=== PATIENT | female | born 1995 ===

== ENCOUNTER 2018-10-08 06:08 | Emergency (ER) | payer OTHER ==
[2018-10-08 06:26] VITALS: BP 128/79
[2018-10-08] MEDS ORDERED: NACL 0.9% 1000 ML 1,000 ML IV ONE (06:26)
[2018-10-08 06:52] LABS: Basophils # (Auto) 0.1 K/mm3 (0.0-0.1); Basophils % (Auto) 1.1 % (0.0-1.8); Eosinophils # (Auto) 0.2 K/mm3 (0.0-0.4); Eosinophils % (Auto) 2.6 % (0.0-4.3); Hematocrit 36.4 % (30.3-42.9); Hemoglobin 12.2 gm/dl (10.1-14.3); Lymphocytes # (Auto) 2.7 K/mm3 (1.2-5.4); Lymphocytes % (Auto) 38.5 % (13.4-35.0); Mean Corpuscular HGB Conc 33 % (30-34); Mean Corpuscular Volume 86 fl (79-97); Monocytes # (Auto) 0.4 K/mm3 (0.0-0.8); Monocytes % (Auto) 5.8 % (0.0-7.3); Platelet Count 361 K/mm3 (140-440); Red Blood Count 4.25 M/mm3 (3.65-5.03); Red Cell Distribution Width 12.7 % (13.2-15.2)
[2018-10-08 07:22] LABS: Alanine Aminotransferase 17 units/L (7-56); Albumin 4.4 g/dL (3.9-5); BUN/Creatinine Ratio 15; Blood Urea Nitrogen 9 mg/dL (7-17); Calcium 8.9 mg/dL (8.4-10.2); Hemolysis Index 5
[2018-10-08 08:13] LABS: Bacteria,Urine 1+ /HPF (Negative); Bilirubin,Urine NEG (Negative); Blood,Urine NEG (Negative); Color,Urine Yellow (Yellow); Mucus,Urine FEW /HPF; Protein,Urine <15 mg/dL mg/dL (Negative); Urobilinogen,Urine < 2.0 mg/dL (<2.0)
--- NOTE | 2018-10-08 08:47 | Emergency Department Report ---
ED Abdominal Pain HPI - General Chief Complaint: Abdominal Pain Stated Complaint: ABD BACK BACK PAIN NV DISSINESS Time Seen by Provider: 10/08/18 08:25 Source: patient Mode of arrival: Ambulatory Limitations: No Limitations - History of Present Illness Initial Comments: Ana is a very pleasant 23 yo female who has had RUQ pain recurrent for the past 6 months. Pain has increased in severity during that time. Sharp pain moderately severe associated with vomiting. Pain radiates to center of back. No pain currently. Diagnosed with back strain from previous physician. Prescribed muscle relaxants and ibuprofen. Another physician recommended weight loss. -: Gradual, month(s) (6) Location: RUQ Radiation: back Severity scale (0 -10): 6 Quality: sharp Consistency: now resolved Improves With: nothing Associated Symptoms: nausea, vomiting - Related Data Allergies Allergy/AdvReac Type Severity Reaction Status Date / Time No Known Allergies Allergy Unverified 10/08/18 06:26 ED Review of Systems ROS: Stated complaint: ABD BACK BACK PAIN NV DISSINESS Other details as noted in HPI Comment: All other systems reviewed and negative Constitutional: denies: fever, malaise ED Past Medical Hx - Past Medical History Previous Medical History?: No - Surgical History Past Surgical History?: No - Social History Smoking Status: Never Smoker Substance Use Type: Alcohol ED Physical Exam - General Limitations: No Limitations General appearance: alert, in no apparent distress - Head Head exam: Present: atraumatic, normocephalic - Eye Eye exam: Present: normal appearance - ENT ENT exam: Present: mucous membranes moist - Neck Neck exam: Present: normal inspection, full ROM - Respiratory Respiratory exam: Present: normal lung sounds bilaterally. Absent: respiratory distress, wheezes, rales, rhonchi - Cardiovascular Cardiovascular Exam: Present: regular rate, normal rhythm, normal heart sounds. Absent: systolic murmur, diastolic murmur, rubs, gallop - GI/Abdominal GI/Abdominal exam: Present: soft, normal bowel sounds. Absent: distended, tenderness, guarding, rebound - Extremities Exam Extremities exam: Present: normal inspection - Back Exam Back exam: Present: normal inspection. Absent: full ROM, tenderness, CVA tenderness (R), CVA tenderness (L) - Neurological Exam Neurological exam: Present: alert, oriented X3 - Psychiatric Psychiatric exam: Present: normal affect, normal mood - Skin Skin exam: Present: warm, dry, intact, normal color. Absent: rash ED Course Vital Signs 10/08/18 06:14 Temperature 98.2 F Pulse Rate 94 H Respiratory 18 Rate Blood Pressure 128/79 O2 Sat by Pulse 100 Oximetry ED Medical Decision Making - Lab Data Result diagrams: 10/08/18 06:31 10/08/18 06:31 Laboratory Results - last 24 hr 10/08/18 10/08/18 10/08/18 06:31 06:31 06:31 WBC 7.0 RBC 4.25 Hgb 12.2 Hct 36.4 MCV 86 MCH 29 MCHC 33 RDW 12.7 L Plt Count 361 Lymph % (Auto) 38.5 H [place] % (Auto) 5.8 Eos % (Auto) 2.6 Baso % (Auto) 1.1 Lymph # 2.7 [place] # 0.4 Eos # 0.2 Baso # 0.1 Seg Neutrophils % 52.0 Seg Neutrophils # 3.6 Sodium 140 Potassium 4.4 Chloride 104.6 Carbon Dioxide 24 Anion Gap 16 BUN 9 Creatinine 0.6 L Estimated GFR > 60 BUN/Creatinine Ratio 15 Glucose 118 H Calcium 8.9 Total Bilirubin 0.20 AST 21 ALT 17 Alkaline Phosphatase 81 Total Protein 7.7 Albumin 4.4 Albumin/Globulin Ratio 1.3 HCG, Qual Negative Urine Color Urine Turbidity Urine pH Ur Specific [place] Urine Protein Urine Glucose (UA) Urine Ketones Urine Blood Urine Nitrite Urine Bilirubin Urine Urobilinogen Ur Leukocyte Esterase Urine WBC (Auto) Urine RBC (Auto) U Epithel Cells (Auto) Urine Bacteria (Auto) Urine Mucus 10/08/18 07:46 WBC RBC Hgb Hct MCV MCH MCHC RDW Plt Count Lymph % (Auto) [place] % (Auto) Eos % (Auto) Baso % (Auto) Lymph # [place] # Eos # Baso # Seg Neutrophils % Seg Neutrophils # Sodium Potassium Chloride Carbon Dioxide Anion Gap BUN Creatinine Estimated GFR BUN/Creatinine Ratio Glucose Calcium Total Bilirubin AST ALT Alkaline Phosphatase Total Protein Albumin Albumin/Globulin Ratio HCG, Qual Urine Color Yellow Urine Turbidity Clear Urine pH 5.0 Ur Specific [place] 1.023 Urine Protein <15 mg/dl Urine Glucose (UA) Neg Urine Ketones Neg Urine Blood Neg Urine Nitrite Neg Urine Bilirubin Neg Urine Urobilinogen < 2.0 Ur Leukocyte Esterase Neg Urine WBC (Auto) 1.0 Urine RBC (Auto) 3.0 U Epithel Cells (Auto) 1.0 Urine Bacteria (Auto) 1+ Urine Mucus Few - Medical Decision Making Ana presents with 6 months of recurrent RUQ pain. Suspect biliary colic. Recommended low fat diet. DDX: PUD, IBS Referred to outside clinic for definitive treatment. Given verbal and written education. CBC chemistry urinalysis and test all within normal limits. With normal work up, appendicitis or ectopic highly unlikely. Critical care attestation.: If time is entered above; I have spent that time in minutes in the direct care of this critically ill patient, excluding procedure time. ED Disposition Clinical Impression: Right upper quadrant abdominal pain Disposition: [id number] TO HOME OR SELFCARE Is pt being admited?: No Does the pt Need Aspirin: No Condition: Stable Instructions: Biliary Colic (ED), Cholelithiasis (ED), Irritable Bowel Syndrome (ED), Peptic Ulcer (ED) Referrals: RONALD GARCIA MD [Primary Care Provider] - 3-5 Days Forms: Work/School Release Form(ED)
== END 2018-10-08 09:02 | disposition home or self-care (01) ==
LOC: ED 06:08
DX: R10.11 Right upper quadrant pain (principal)
CPT/HCPCS: 36415; 80053; 81001; 84703; 85025